=== PATIENT | male | born 1970 | race Two or more races ===

== ENCOUNTER 2022-08-13 11:17 | Emergency (ER) | payer MEDICAID ==
[~2022-08-13] VITALS: Ht 177.8 cm; Wt 81.6 kg
--- NOTE | 2022-08-13 11:30 | NUR ---
kianna from street, c/o sob 99% on room air, restless admits on etoh. Kept comfortable, will continue to monitor accordingly.
[2022-08-13] MEDS ORDERED: ALBU18HF2 INH (13:23)
[2022-08-13] MEDS ORDERED: ALBUTEROL SULFATE 8 GM HFA.AER.AD IH ONE (13:30)
[2022-08-13] MEDS ORDERED: IPRATROPIUM NEB FS 0.5 MG/2.5 ML AMPUL.NEB ONE (13:50)
[2022-08-13] MEDS ORDERED: ALBUTEROL FS 2.5 MG/3 ML VIAL.NEB ONE (13:50)
[2022-08-13] MEDS ORDERED: ALBUTEROL FS 2.5 MG/3 ML VIAL.NEB NEB ONE (14:00)
[2022-08-13] MEDS ORDERED: IPRATROPIUM NEB FS 0.5 MG/2.5 ML AMPUL.NEB NEB ONE (14:00)
[2022-08-13 14:58] VITALS: BP 118/77
--- NOTE | 2022-08-13 14:59 | NUR ---
Patient discharged to home in stable condition. Written and verbal after care instructions given. Patient verbalizes understanding of instruction.
== END 2022-08-13 14:59 | disposition home or self-care (01) ==
LOC: ER 11:24
DX: J45.909 Unspecified asthma, uncomplicated (principal); F10.129 Alcohol abuse with intoxication, unspecified; Z79.51 Long term (current) use of inhaled steroids; Y90.9 Presence of alcohol in blood, level not specified
CPT/HCPCS: 82962-TC